=== PATIENT | female | born 1980 | race Caucasian/White ===

== ENCOUNTER 2017-12-08 11:49 | Emergency (ER) | payer BC ==
[2017-12-08 12:27] VITALS: BP 145/103
--- NOTE | 2017-12-08 12:32 | UC ---
Throat Pain/Nasal Sergo HPI - HPI Summary HPI Summary: Patient presents to urgent care reporting that Larry 10 days ago she felt her sinuses. Patient States She's Been Using Her Snud-Rqz-Sgxxxsa Allergy Medication. Patient States Progressively She Feels That Is Also Told in Her Sinuses. Patient States She [place] Febrile and Fatigue Last Weekend. Patient States She States Home. Patient States That a Week Continues to Feel Pressure. Patient with Green Secretions. Patient with Dental Achiness. Patient's Had Sinus Infections in the past, Last One Provider in 2 Years Ago Patient States This Feels Similar. Patient States Her Symptoms Are Better after Hot Showers. Patient Denies Chest Pain Shortness of Breath. No Abdominal Pain. No Nausea Vomiting. No Possibly of . Patient without Any Other Complaints. Pt's medications reviewed this visit - History of Current Complaint Chief Complaint: UCRespiratory Stated Complaint: SINUS COMPLAINT Time Seen by Provider: 12/08/17 12:31 Hx Obtained From: Patient Hx Last Menstrual Period: 12/06/17 ?: No Onset/Duration: Gradual Onset Severity: Moderate Pain Intensity: 5 Pain Scale Used: 0-10 Numeric - Allergies/Home Medications Allergies/Adverse Reactions: Allergies Allergy/AdvReac Type Severity Reaction Status Date / Time cephalexin AdvReac Unknown GI Upset Verified 12/08/17 12:15 Home Medications: Home Medications Dm/PE/Acetaminophen/Chlorphenr [[place]-Momence Plus Cld-Cough Cp] 1 each PO PRN [History] Ibuprofen TAB* [Advil TAB*] 200 mg PO Q6H PRN 12/08/17 [History Confirmed ] PMH/Surg Hx/FS Hx/Imm Hx Previously Healthy: Yes - Surgical History Surgical History: Yes Surgery Procedure, Year, and Place: R arm surgery. D&C. APPENDECTOMY 10/14/15 - [facility] - Family History Known Family History: Positive: Hypertension - Social History Occupation: Employed Full-time Lives: With Family Alcohol Use: Rare Alcohol Amount: 2 drinks/week Substance Use Type: None Smoking Status (MU): Current Some Day Smoker Type: Cigarettes Amount Used/How Often: 2 CIGS PER MONTH Have You Smoked in the Last Year: Yes When Did the Patient Quit Smoking/Using Tobacco: 06/10/14 - Immunization History Most Recent Influenza Vaccination: did not have Most Recent Tetanus Shot: 2007 Review of Systems Constitutional: Negative Skin: Negative ENT: Sore Throat, Nasal Discharge, Sinus Congestion, Sinus Pain/Tenderness Respiratory: Negative All Other Systems Reviewed And Are Negative: Yes Physical Exam - Summary Physical Exam Summary: Vital Signs Reviewed: Yes A+Ox3, no distress Eyes: Conjunctiva Clear, IRINEO. EOM intact and full ENT: Hearing grossly normal TM x 2 clear, turbinates inflammed and boggy, + max sinus Pain R>L , + PND mmoist, uvula midline, no exudate, no erythema Neck: Positive: Supple. no lymphadenopathy Respiratory: Positive: No respiratory distress, No accessory muscle use + CTA throughout no w/r Cardiovascular: RRR nl s1, s2 no m/r CBT <2 sec abd soft + BS nt/nd no guarding, no distension Musculoskeletal Exam: NIETO x 4 without difficulty Strength Intact, ROM Intact Neurological: Positive: Alert, + sensation throughout Psychological: Positive: Normal Response To Family Skin: Positive: no rash, no ecchymosis Triage Information Reviewed: Yes Vital Signs: Initial Vital Signs Temp 98.3 F 12/08/17 12:17 Pulse 89 12/08/17 12:17 Resp 17 12/08/17 12:17 BP 145/103 12/08/17 12:17 Pulse Ox 99 12/08/17 12:17 Throat Pain/Nasal Course/Dx - Course Course Of Treatment: Patient presents with 10 days of progressive sinus pressure. Patient with green secretions. Patient states she treated symptomatically [id number] but seems to be getting worse. Patient without any nausea vomiting. Patient without any vision changes ago she does have some had pressure in her frontal sinus. On exam consistent with sinusitis. We'll prescribe Flonase as well as antibiotics. Secretion precautions. Humidified air. Strict return precautions. Patient comfortable in agreement with plan. Recommend continue with allergy medicine. Pt's blood pressure noted to be elevated - recommend f/u with PCP - Differential Dx/Diagnosis Provider Diagnoses: rhinosinusitis Discharge - Sign-Out/Discharge Documenting (check all that apply): Patient Departure All imaging exams completed and their final reports reviewed: No Studies - Discharge Plan Condition: Stable Disposition: HOME Prescriptions: Amoxicillin PO (*) [Amoxicillin 500 MG CAP*] 500 mg PO Q12H #20 cap Fluticasone NASAL SPRAY 50MCG* [Flonase NASAL SPRAY 50MCG*] 2 spray BOTH NARES DAILY #1 btl Patient Education Materials: Rhinosinusitis (ED) Referrals: Romie Reyes DO [Primary Care Provider] - Additional Instructions: - Stay well hydrated. Drink plenty of non-alcoholic, non-caffinated beverages. - Alternate ibuprofen (Advil, Motrin) 600mg and Tylenol every 3 hours for pain or fever. Take with food. Do NOT take for more than 4-5 days. - These infections are spread by secretions - do NOT share eating or drinking utensils - clean items you share with other people such as cell phones, computer mouse, TV remote, computer tablets,etc. Once you have been antibiotics for 2 days, change your toothbrush and your pillowcase. - get plenty of restful sleep - humidify the air in the room where you sleep - boil water, run a hot steam shower, vaporizer, cups of water by heat register - okay to take over the counter decongestant and cough medication. continue to take your allergy medication - use nasal spray as prescribed - contact your doctor or return with questions or concerns - Billing Disposition and Condition Condition: STABLE Disposition: Home
== END 2017-12-08 13:09 | disposition home or self-care (01) ==
LOC: UCCORT 11:49
DX: J32.9 Chronic sinusitis, unspecified (principal); Z99.81 Dependence on supplemental oxygen; Z88.1 Allergy status to other antibiotic agents; F17.210 Nicotine dependence, cigarettes, uncomplicated
CPT/HCPCS: 99212; G0463